=== PATIENT | male | born 2005 | race Caucasian/White ===

== ENCOUNTER 2025-01-16 08:31 | Emergency (ER) | payer OTHER, BC, SELFPAY ==
--- OUTSIDE RECORDS SUMMARY | 2025-01-16 08:33 | XMS_ITS | Encounter Summary ---
Author Organization [place] Address [facility] [place] [address] Care Team Providers Care Residential Program Manager Name Role Phone Shasha Szymanski MD Primary Care Provider [phone] Shasha Szymanski MD Unavailable [phone] Reason for Visit * Reason Onset Date Comments Refill Request 09/23/2022 Encounter Details Date Type Department Care Team (Late st Contact Info) Description 09/23/2022 MyC Refill [facility] [id number] [place] [phone] Shasha Szymanski MD [address] [place] [address] Refill Request Social History Tobacco Use Types Packs/Day Years Used Date Smoking Tobacco: Never Smokeless Tobacco: Never Alcohol Use Standard Drinks/Week Comments No 0 (1 standard drink = 0.6 oz pur e alcohol) Sex and Gender Information Value Date Recorded Sex Assigned at Not on file Legal Sex Male 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 Gender Identity Not on file Sexual Orientation Not on file documented as of this encounter Miscellaneous Notes * Telephone Encounter - Mirtha Ambriz - 09/24/2022 9:52 AM CST Patient read mychart message aware needs to schedule Mirtha Ambriz/ Developer Programmer Analyst TENANT GOVERNOR * Telephone Encounter - Monica Larson MA - 09/23/2022 5:59 PM CST Mychart message sent Monica Larson, Developer Programmer Analyst TENANT GOVERNOR * Telephone Encounter - Shasha Szymanski MD - 09/23/2022 5:33 PM LIEUTENANT GOVERNOR #30 of each sent - need visit before further fills TENANT GOVERNOR * Telephone Encounter - Rachael Rocha RN - 09/23/2022 8:30 AM CST Routing refill request to provider for review/approval because: Drug not on the [facility] refill protocol Rachael Rocha RN TENANT GOVERNOR documented in this encounter Plan of Treatment Not on file documented as of this encounter Visit Diagnoses Diagnosis ADHD (attention deficit hyperactivity disorder), combined type Attention deficit disorder with hyperactivity documented in this encounter Care Teams Residential Program Manager Relationship Specialty [place] [address] [place] [address] PCP - General Family Practice 11/30/16 [place] [address] [place] [address] Assigned PCP 07/10/22 documented as of this encounter
--- OUTSIDE RECORDS SUMMARY | 2025-01-16 08:33 | XMS_ITS | Encounter Summary ---
Author Organization [place] Address [address] [place] [address]. [place] [address] Care Team Providers Care Lesson Instructor Name Role Phone Shasha Szymanski MD Primary Care Provider [phone] Shasha Szymanski MD Unavailable [phone] Encounter Details Date Type Department Care Team (Late st Contact Info) Description 07/14/2022 [facility] [address] [phone] [place] [id number] [place] [id number] ADHD (attention deficit hyperactivity disorder), combined type (Primary Dx) Social History Tobacco Use Types Packs/Day Years Used Date Smoking Tobacco: Never Smokeless Tobacco: Never Alcohol Use Standard Drinks/Week Comments No 0 (1 standard drink = 0.6 oz pur e alcohol) Sex and Gender Information Value Date Recorded Sex Assigned at Not on file Legal 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 No / Unsure 07/08/2022 9:01 AM CDT documented as of this encounter Miscellaneous Notes * Telephone Encounter - Shasha Szymanski MD - 07/15/2022 10:18 AM CDT 5 mg IR sent, he should take about 5- 6 hours after XR dosing. JH * Telephone Encounter - Rachael Rocha RN - 07/14/2022 4:06 PM CDT See my chart and advise Rachael Rocha RN documented in this encounter Plan of Treatment Not on file documented as of this encounter Visit Diagnoses Diagnosis ADHD (attention deficit hyperactivity disorder), combined type- Primary Attention deficit disorder with hyperactivity documented in this encounter Care Teams Lesson Instructor Relationship Specialty Start [place] [address] [place] [address] PCP - General Family Practice 11/30/16 [place] [address] [place] [address] Assigned PCP 07/10/22 documented as of this encounter
--- OUTSIDE RECORDS SUMMARY | 2025-01-16 08:33 | XMS_ITS | Encounter Summary ---
Author Organization [place] Address [facility] [place] [address] Care Team Providers Care Fiberglass Boat Finisher Name Role Phone Shasha Szymanski MD Primary Care Provider [phone] Shasha Szymanski MD Unavailable [phone] Encounter Details Date Type Department Care Team (Late st Contact Info) Description 09/23/2022 [facility] [address] [phone] Monica Larson MA Social History Tobacco Use Types Packs/Day Years Used Date Smoking Tobacco: Never Smokeless Tobacco: Never Alcohol Use Standard Drinks/Week Comments No 0 (1 standard drink = 0.6 oz pur e alcohol) Sex and Gender Information Value Date Recorded Sex Assigned at Not on file 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
--- OUTSIDE RECORDS SUMMARY | 2025-01-16 08:34 | XMS_ITS | Clinical Summary ---
Author Organization [place] Address [address] [place] [address]. [place] [address] Care Team Providers Care Wilton Weaver Name Role Phone Shasha Szymanski MD Primary Care Provider [phone] Shasha Szymanski MD Unavailable [phone] Allergies No known active allergies Medications amphetamine-dextro amphetamine (ADDERALL XR) 10 MG 24 hr capsuleIndications :ADHD (attention deficit hyperactivity disorder), combined type Take 1 capsule (10 mg) by mouth daily 30 capsule 3 Active amphetamine-dextro amphetamine (ADDERALL) 5 MG tabletIndications: ADHD (attention deficit hyperactivity disorder), combined type Take 1 tablet (5 mg) by mouth 2 times daily 30 tablet 3 Active Active Problems Problem Noted Date Diagnosed Date ADHD (attention deficit hype ractivity disorder), combined type 04/27/2017 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 Resolved Problems Problem Noted Date Diagnosed Date Resolved Date Anterior synechiae of iris 08/22/2014 0 06/07/2022 Corectopia 08/22/2014 11/30/2016 School problem 01/24/2014 11/30/2016 Behavior concern 01/24/2014 11/30/2016 Eye injury 01/21/2014 11/30/2016 Failed vision screen 01/21/2014 017 Immunizations Name Administration Dates Next Due COVID-19 MONOVALENT 12+ (Pfizer) 04/14/2021,0506/2021 Comvax (HIB/HepB) 06/26/2006 DTAP (<7y) 09/14/2010, 0,10/12/2006,01/05,2005,2005 DTaP/HepB/IPV 01/05/2006,2005,2005 HEPA 08/29/2007,06/26/2006 HEPATITIS A (PEDS 12M-18Y) 08/29/2007,07/06/2006 HIB (PRP-T) 06/26/2006,2005 HPV9 07/08/2022 HepA-Peds, Unspecified 06/26/2006 HepB 06/26/2006, 6,2005,09/03 Historic Hib Hib-titer 2005 Influenza (IIV3) PF 11/30/2016,08/29/2007 Influenza Intranasal Vaccine 09/14/2010 Influenza Vaccine, 6+MO IM (QUADRIVALENT W/PRESERVATIVES) 08/20/2019 MMR 06/30/2011,10/12/2006 Meningococcal ACWY (Menactra ) 07/08/2022,11/30/2016 Pneumococcal (PCV 7) 10/12/2006,01/06/20 06,2005,09/03 Poliovirus, inactivated (IPV) 09/14/2010 ,01/05/2006,2005,09/03 TDAP Vaccine (Boostrix) 11/30/2016 Varicella 06/30/2011,10/12/2006 Family History Medical History Relation Comments Asthma Brother 1 Breast Cancer No family hx of Cancer No family hx of Cancer - colorectal No family hx of Cerebrovascular Disease No family hx of Diabetes No family hx of Glaucoma No family hx of Hypertension No family hx of Macular Degeneration No family hx of Prostate Cancer No family hx of Thyroid Disease No family hx of Relation Status Comments Brother 1 Alive Brother 2 Alive Father Alive Maternal Grandfather Alive Maternal Grandmother Alive Mother Alive Paternal Grandfather Alive Paternal Grandmother Alive Sister Alive Social History Tobacco Use Types Packs/Day Years Used Date Smoking Tobacco: Never Smokeless Tobacco: Never Alcohol Use Standard Drinks/Week Comments No 0 (1 standard drink = 0.6 oz pur e alcohol) PHQ-2 Answer Date Recorded PHQ-2 Score 0 01/04/2023 Adolescent Education Answer Date Record ed Getting School Help Needed Not on file 07/29 Sex and Gender Information Value Date Recorded Sex Assigned at Not on file Legal Sex Male 6:13 PM 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 Gender Identity Not on file Sexual Orientation Not on file Last Filed Vital Signs Vital Sign Reading Time Taken Comments Blood Pressure 104/62 06/07/2022 2:40 PM CDT Pulse 71 06/07/2022 2:40 PM CDT Temperature 36.8 C (98.3 F) 06/07/2022 2:40 PM CDT Respiratory Rate 16 06/07/2022 2:40 PM CDT Oxygen Saturation 99% 06/07/2022 2:40 PM CDT Inhaled Oxygen Concentration - - Weight 59 kg (130 lb 1.6 oz) 06/07/2022 2:40 PM CDT Height 172.7 cm (5' 8) 06/07/2022 2:40 PM CDT Body Mass Index 19.78 06/07/2022 2:40 PM CDT Body Mass Index Percentile 28.99% 06/07/2022 2:4 0 PM CDT Growth Chart: CDC (Boys, 2-2 0 Years) Plan of Treatment Health Maintenance Due Date Last Done Comments ADVANCE CARE PLANNING 2005 YEARLY PREVENTIVE VISIT 11/30/2017 11/30/2016, 01/21 MENINGITIS B IMMUNIZATION (1 of 2 - Standard) 2021 HPV IMMUNIZATION (2 - Male 3-dose series) 08/05/2022 07/08/2022 HEPATITIS C SCREENING 2023 ANNUAL REVIEW OF HM ORDERS 01/04/2024 01/04/2023 COVID-19 Vaccine (3 - season) 2024 04/14/2021, 03/24/2021 INFLUENZA VACCINE (#1) 2024 9, 11/30/2016, 09/14/2010, Additional history exists PHQ-2 (once per calendar year) 2024 01/04/2023 DTAP/TDAP/TD IMMUNIZATION (7 - Td or Tdap) 11/30/2026 11/30/2016, 09/14/2010, 09/14/2010, Additional history exists ZOSTER IMMUNIZATION (1 of 2) 2055 RSV VACCINE (1 - 1-dose 75+ series) 2080 HEPATITIS B IMMUNIZATION Completed 006, 06/26/2006, 01/05/2006, Additional history exists HIB IMMUNIZATION Aged Out 06/26/2006, , 2005, Additional history exists No longer eligible based on patient's age to complete this topic Pneumococcal Vaccine: Pediatrics (0 to 5 Years) and At-Risk Patients (6 to 49 Years) Aged Out 10/12/2006, 01/05/2006, 2005, Additional history exists No longer eligible based on patient's age to complete this topic IPV IMMUNIZATION Completed 09/14/2010, 11/2005, 01/05/2006, Additional history exists VARICELLA IMMUNIZATION Completed 06/30/2011, 2005 MENINGITIS IMMUNIZATION Completed 07/08/2022, 11/30 HIV SCREENING Discontinued RSV MONOCLONAL ANTIBODY Aged Out No l onger eligible based on patient's age to complete this topic [place] [address] [place] [facility] [place] [address] [place] Care Teams Wilton Weaver Relationship Specialty [place] [address] [address] PCP - General Family Practice 11/30/16 [place] [address] [place] [address] Assigned PCP 07/10/22
[2025-01-16 08:37] VITALS: BP 116/80; PULSE 85; RESP 18; TEMP 37.5; O2SAT 95; BMI 19.2
--- NOTE | 2025-01-16 08:43 | CRLHL7_ITS ---
For Patients: As a result of the Century Cures Act, medical imaging exams and procedure reports are released immediately into your electronic medical record. You may view this report before your referring provider. If you have questions, please contact your health care provider. Indication: Injury Technique: A total of three-view of the right hand were acquired. Comparison: None Findings: Bones: A fracture is noted involving the base of the 5th metacarpal. This is obliquely oriented, on the radial side, mildly displaced and intra-articular Joint spaces: No dislocation Soft tissues: Unremarkable. Impression: 1. Fracture at the base of the right 5th metacarpal. 2. Questionably abnormal lunate. Recommend a formal wrist series to include a scaphoid view. Dictated by Isai Torres MD @ 01/16/2025 9:08:19 AM (Electronically Signed)
--- NOTE | 2025-01-16 08:51 | ED.GENADULT ---
HPI - General Adult General Chief complaint: Extremity Pain/Injury, Upper Stated complaint: R hand injury Time Seen by Provider: 01/16/25 08:39 History of Present Illness HPI narrative: Patient is a 89-year-old male punched a box of fish injured his right hand. This happened about half an hour ago. He has some swelling pain over mostly his metacarpal on the dorsal side. No gross deformity noted. He has been able to move his hand. Related Data Home Medications ?Medication ?Instructions ?Recorded ?Confirmed No Known Home Medications 01/16/25 01/16/25 Allergies Allergy/AdvReac Type Severity Reaction Status Date / Time No Known Drug Allergies Allergy Verified 01/16/25 08:41 Review of Systems Status of ROS: Reports: 6 or more systems reviewed and unremarkable except as noted in History and below Exam Narrative: Exam Narrative: Objective vital signs are within normal limits His right hand shows no wrist tenderness no snuffbox tenderness he has got some tenderness over his 5th metacarpal but no obvious deformity. No open wounds noted. He has got fairly full range of motion of his hand. Normal range of motion was fingers. Const: Vital Signs, click to edit/add: Vital Signs - 24 hr 01/16/25 08:37 Temperature 99.5 F Pulse Rate [Pulse Oximeter] 85 Respiratory Rate 18 Blood Pressure [Le ft Upper Arm] 116/80 Pulse Oximetry 95 Oxygen Delivery Me thod Room Air Course Vital Signs Vital signs: Initial Vital Signs Temperature 99.5 F 01/16/25 08:37 Temperature Source Temporal Artery Scan 01/16/25 08:37 Pulse Rate 85 01/16/25 08:37 Respiratory Rate 18 01/16/25 08:37 Blood Pressure 116/80 01/16/25 08:37 Blood Pressure Mean 92 01/16/25 08:37 Blood Pressure Position Sitting 01/16/25 08:37 Pulse Oximetry 95 01/16/25 08:37 Oxygen Delivery Method Room Air 01/16/25 08:37 Vital Signs Temperature 99.5 F 01/16/25 08:37 Pulse Rate 85 01/16/25 08:37 Respiratory Rate 18 01/16/25 08:37 Blood Pressure 116/80 01/16/25 08:37 Pulse Oximetry 95 01/16/25 08:37 Oxygen Delivery Method Room Air 01/16/25 08:37 Temperature 99.5 F 01/16/25 08:37 Pulse Rate 85 01/16/25 08:37 Respiratory Rate 18 01/16/25 08:37 Blood Pressure 116/80 01/16/25 08:37 Pulse Oximetry 95 01/16/25 08:37 Oxygen Delivery Method Room Air 01/16/25 08:37 Medical Decision Making MDM Narrative Medical decision making narrative: [age] year white male with potential boxer's fracture of the right hand. Patient will get an x-ray disposition pending findings. Addendum 9:13 a.m.: The patient has a proximal metacarpal fracture, he is placed in a short-arm thumb spica splint. He tolerated this well. He will be asked to see Orthopedics in the next 3-5 days. Elevation icing no written for work. Also because of need for protection put him in a ulnar gutter splint. I do not think he will have much wrist or hand motion at with this. I think that will be adequate for his follow-up. Discharge Plan Discharge Clinical Impression: Injury of hand, right Patient Disposition: Home, Self-Care Instructions: Hand Fracture (DC) Additional Instructions: Follow up Orthopedic appointment is scheduled at the [facility] on 01/21 at 10am. Please arrive at 9:45am to complete paperwork. If you have any questions or need to reschedule, please call [phone]. [facility] [address] [place] [address] Prescriptions: No Action No Known Home Medications Stand Alone Forms: [employer] Info Instructions
--- OUTSIDE RECORDS SUMMARY | 2025-01-16 09:40 | XMS_ITS | Encounter Summary ---
Author Organization [place] Address [address] [place] [address]. [place] [address] Care Team Providers Care Marker Shipments Name Role Phone Shasha Szymanski MD Primary Care Provider [phone] Shasha Szymanski MD Unavailable [phone] Encounter Details Date Type Department Care Team (Late st Contact Info) Description 07/14/2022 [facility] [address] [phone] [place] [id number] [place] [address] ADHD (attention deficit hyperactivity disorder), combined type (Primary Dx) Social History Tobacco Use Types Packs/Day Years Used Date Smoking Tobacco: Never Smokeless Tobacco: Never Alcohol Use Standard Drinks/Week Comments No 0 (1 standard drink = 0.6 oz pur e alcohol) Sex and Gender Information Value Date Recorded Sex Assigned at Not on file Legal 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
--- OUTSIDE RECORDS SUMMARY | 2025-01-16 09:40 | XMS_ITS | Encounter Summary ---
Author Organization [place] Address [facility] [place] [address] Care Team Providers Care Laminator Hand Name Role Phone Shasha Szymanski MD Primary Care Provider [phone] Shasha Szymanski MD Unavailable [phone] Reason for Visit * Reason Onset Date Comments Refill Request 09/23/2022 Encounter Details Date Type Department Care Team (Late st Contact Info) Description 09/23/2022 MyC Refill [facility] [id number] [place] [phone] Shasha Szymanski MD [address] [place] [address] Refill Request Social History Tobacco Use Types Packs/Day Years Used Date Smoking Tobacco: Never Smokeless Tobacco: Never Alcohol Use Standard Drinks/Week Comments No 0 (1 standard drink = 0.6 oz pur e alcohol) Sex and Gender Information Value Date Recorded Sex Assigned at Not on file Legal Sex Male 6:13 PM 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 Gender Identity Not on file Sexual Orientation Not on file documented as of this encounter Miscellaneous Notes * Telephone Encounter - Mirtha Ambriz - 09/24/2022 9:52 AM CST Patient read mychart message aware needs to schedule Mirtha Ambriz/ Aircraft Inspection Record Clerk N FACTORS ERGONOMIST * Telephone Encounter - Monica Larson MA - 09/23/2022 5:59 PM CST Mychart message sent Monica Larson, Aircraft Inspection Record Clerk N FACTORS ERGONOMIST * Telephone Encounter - Shasha Szymanski MD - 09/23/2022 5:33 PM HUMAN FACTORS ERGONOMIST #30 of each sent - need visit before further fills N FACTORS ERGONOMIST * Telephone Encounter - Rachael Rocha RN - 09/23/2022 8:30 AM CST Routing refill request to provider for review/approval because: Drug not on the [facility] refill protocol Rachael Rocha RN N FACTORS ERGONOMIST documented in this encounter Plan of Treatment Not on file documented as of this encounter Visit Diagnoses Diagnosis ADHD (attention deficit hyperactivity disorder), combined type Attention deficit disorder with hyperactivity documented in this encounter Care Teams Laminator Hand Relationship Specialty Start [place] [address] [place] [address] PCP - General Family Practice 11/30/16 [place] [address] [place] [address] Assigned PCP 07/10/22 documented as of this encounter
--- OUTSIDE RECORDS SUMMARY | 2025-01-16 09:40 | XMS_ITS | Encounter Summary ---
Author Organization [place] Address [facility] [place] [address] Care Team Providers Care Farmworker Egg Producing Farm Name Role Phone hSasha Szymanski MD Primary Care Provider [phone] Shasha Szymanski MD Unavailable [phone] Encounter Details Date Type Department Care Team (Late st Contact Info) Description 09/23/2022 [facility] [address] [phone] Monica Larson MA Social History Tobacco Use Types Packs/Day Years Used Date Smoking Tobacco: Never Smokeless Tobacco: Never Alcohol Use Standard Drinks/Week Comments No 0 (1 standard drink = 0.6 oz pur e alcohol) Sex and Gender Information Value Date Recorded Sex Assigned at Not on file Legal Sex Male 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
--- OUTSIDE RECORDS SUMMARY | 2025-01-16 09:40 | XMS_ITS | Clinical Summary ---
Author Organization [place] Address [address] [place] [address]. 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
== END 2025-01-16 09:39 | disposition home or self-care (01) ==
LOC: ED 09:38
PROVIDERS: Emergency Provider Family Medicine; PCP Family Medicine
DX: S62.306A Unspecified fracture of fifth metacarpal bone, right hand, initial encounter for closed fracture (principal); W22.8XXA Striking against or struck by other objects, initial encounter
CPT/HCPCS: 73130; 99283; 99284

== ENCOUNTER 2025-01-29 12:53 | Outpatient (CLI) | payer OTHER, BC, SELFPAY | END 2025-01-29 12:54 | disposition home or self-care (01) | LOC: CT 12:53 | PROVIDERS: PCP Family Medicine; Visit Provider Physician Assistant | DX: S62.316A Displaced fracture of base of fifth metacarpal bone, right hand, initial encounter for closed fracture (principal) | CPT/HCPCS: 73200 ==

== ENCOUNTER 2025-01-30 06:30 | Day surgery (SDC) | payer OTHER, BC, SELFPAY ==
[2025-01-30] VITALS (7 sets, daily range): BP systolic 104–127; BP diastolic 64–81; PULSE 61–94; RESP 16; TEMP 36.2–37.4; O2SAT 95–99
[2025-01-30] MEDS: LACTATED RINGERS 1000 ML 1,000 ML 100 ML IV (07:31)
[2025-01-30] MEDS: SODIUM CHLORIDE 0.9 % (FLUSH) 10 ML SYRINGE IVF (07:31)
--- NOTE | 2025-01-30 07:33 | W.PM.H&PU ---
History & Physical Update History & Physical Update H&P Reviewed and patient assessed: No changes noted
[2025-01-30] MEDS: MIDAZOLAM HCL 1 MG/ML inj IVP (08:32)
[2025-01-30] MEDS: fentaNYL 100 MCG/2 ML inj IVP (08:32)
--- NOTE | 2025-01-30 08:43 | P.NB_ITS ---
Nerve Block Nerve Block Time Seen by Provider: 08: Date Seen: 01/30/25 Type of block requested by surgeon for post-operative analgesia: axillary Side: right Time out performed: Yes Verification of patient name: Yes Verification of date of : Yes Site marking: site marked Name of person performing procedure: Jennifer Jeff, LAURA Assistants, if any: Leo Wall Continuous monitoring Was continuous monitoring of O2 sat, B/P, monitoring coordinator, recorded every 15 minutes?: Yes Procedure Checklist: sterile prep, needles and gloves Ultrasound guided. Images saved: Yes Medications given in 5ml increments after negative aspiration: Ropivicaine %: 0.5 mL: 20 Needle gauge: 20 Precedex (mcg): 25 Patient tolerated procedure well: Yes Block Charges Block Charge (with Pro Fee): Axillary Nerve Use of Ultrasound Machine for Block: Yes- US Guidance/pain block
--- NOTE | 2025-01-30 09:00 | CRLHL7_ITS ---
For Patients: As a result of the Cures Act, medical imaging exams and procedure reports are released immediately into your electronic medical record. You may view this report before your referring provider. If you have questions, please contact your health care provider. HISTORY: Fifth metacarpal pinning. TECHNIQUE: Fluoroscopy was provided intraoperatively for the Orthopedic surgery service. 5 spot films acquired. COMPARISON: 01/21/2025. FINDINGS: Spot films demonstrate pinning a 5th metacarpal base fracture. The pins appear intact and appropriately seated. IMPRESSION: 1. Pinning of a 5th metacarpal base fracture. Pins are intact. Dictated by Cameron Brown MD @ 01/31/2025 5:21:24 AM (Electronically Signed)
[2025-01-30] MEDS: CEFAZOLIN 2 GM INJ IVP (09:08)
[2025-01-30] MEDS: BUPIVACAINE 0.5% 30 ML INJECTION (09:24)
--- NOTE | 2025-01-30 10:32 | PM.ORPRC ---
Procedure Note Date of procedure: 01/30/25 Procedure: PREOPERATIVE DIAGNOSIS: 1. Right 5th metacarpal base fracture (closed, displaced, intra-articular) POSTOPERATIVE DIAGNOSIS: 1. Right 5th metacarpal base fracture (closed, displaced, intra-articular) PROCEDURE: 1. Right 5th metacarpal open reduction percutaneous pinning SURGEON: Reuben Gonzalez MD. OPERATIONS MANAGEMENT TRAINEE: Go Mahoney P.A.-C. - Of note, an loan officer assistant was critical for this case to aid in patient positioning, tissue retraction, limb manipulation/positioning, and closure. ANESTHESIA: Axillary nerve block with monitored anesthesia care IMPLANTS: 0.045 in K-wires x2 TOURNIQUET: 50 min at 250 mmHg ESTIMATED BLOOD LOSS: 3 mL COMPLICATIONS: None INDICATIONS: The patient is a pleasant 19-year-old male who sustained a displaced right 5th metacarpal base fracture. Recommendation made for surgical intervention to improve alignment and allow for fracture healing in a more anatomic position. Prior to surgery risks and benefits of procedure discussed with patient all questions were answered and informed consent was obtained. FINDINGS: Displaced 5th metacarpal base fracture (reverse Mcmanus). DESCRIPTION OF PROCEDURE: Following a thorough discussion of risks, benefits, and alternatives consent was obtained and the operative site was marked. An axillary nerve block was performed by anesthesia staff. The patient was then brought to the operating room and placed supine on the operating table. Monitored anesthesia care was administered and patient was given IV Ancef preoperatively for prophylaxis. A tourniquet was placed on patient's right upper arm, and right upper extremity was prepped and draped in usual sterile fashion. Surgical time-out was performed confirming patient identity, surgical site, surgical procedure. Closed reduction was attempted, but fracture could not be reduced. Mid Level Developer was made to proceed with open reduction. Right upper extremity was elevated and exsanguinated with an Esmarch, and tourniquet was inflated to 250 mmHg. Longitudinal incision was made dorsally over the radial base of the 5th metacarpal. Blunt dissection was used to dissect through deep subcutaneous tissues. Superficial branches of the ulnar nerve were identified and protected throughout the course of the procedure. Dissection was carried down to bone. Fracture site was identified. [place] was used to mobilize the fracture. Fracture was then reduced and held in position with dental pick. A 0.045 K-wire was then placed percutaneously into the 5th metacarpal shaft and advanced proximally across the metacarpal base fracture and into the hamate. Fluoroscopic imaging was used to confirm correct pin placement and near anatomic reduction of the fracture. A 2nd 0.45 K-wire was then placed transversely across the 5th metacarpal shaft and 4th metacarpal shaft. Fluoroscopic images in multiple planes radius to confirm correct pin placement and near anatomic reduction of the fracture. Pins were then bent and Jergen's balls were placed over the ends of the pins. Tourniquet was released. Wound was irrigated with normal saline and hemostasis was achieved with bipolar electrocautery. Subcutaneous tissues near the surgical site were injected with 0.5% plain Marcaine. Skin incision was closed with 3-0 Vicryl inverted interrupted subcutaneous stitches followed by running 3-0 Monocryl subcuticular stitch and Dermabond. Sterile dressings were applied followed by a forearm based ulnar gutter splint with the small and ring fingers in the intrinsic plus position. Patient was awoken from anesthesia and transferred the PACU in stable condition. PLAN: 1. Keep splint clean and dry. No lifting, pushing, or pulling with right upper extremity 2. Ice and elevation to help control pain and swelling. 3. Tylenol and/or ibuprofen as needed for pain control. Warrior as needed for more severe pain. 4. Follow up in orthopedic clinic in 10-14 days for wound check. 5. We will convert splint to orthoplastic splint in 10-14 days. -Forearm based ulnar gutter splint with small and ring finger MCP joints in the intrinsic plus position. -PIP and the IP joints free to allow finger range of motion. 6. Follow-up with Dr. Gonzalez in orthopedic clinic approximately 4 weeks postoperatively.
--- NOTE | 2025-01-30 11:08 | P.ANES_ITS ---
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
--- NOTE | 2025-01-30 11:08 | W.ANESCHARGE ---
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
== END 2025-01-30 12:15 | disposition home or self-care (01) ==
PROVIDERS: PCP Family Medicine; Visit Provider Orthopaedic Surgery
PROC: (CPT 26615; principal; 2025-01-30 09:00)
DX: S62.316A Displaced fracture of base of fifth metacarpal bone, right hand, initial encounter for closed fracture (principal); G89.18 Other acute postprocedural pain
CPT/HCPCS: 26615; 01830; 64417; 73140; 76942; J0665; J0690; J1100; J2250; J2405; J2704; J2795; J3010; J3490; J7120

== ENCOUNTER 2025-02-28 16:00 | Outpatient (RCR) | payer OTHER, BC, SELFPAY | END 2025-06-28 23:59 | disposition home or self-care (01) | PROVIDERS: PCP Family Medicine; Visit Provider Orthopaedic Surgery | DX: S62.308D Unspecified fracture of other metacarpal bone, subsequent encounter for fracture with routine healing (principal); Z51.89 Encounter for other specified aftercare | CPT/HCPCS: 97110; 97140; 97165; L3808; X5282 ==